=== PATIENT | male | born 2000 | race Caucasian/White ===

== ENCOUNTER 2022-09-05 17:26 | Emergency (ER) | payer OTHER ==
[~2022-09-05] VITALS: Ht 182.9 cm; Wt 77.3 kg
[2022-09-05] MEDS ORDERED: KETOROLAC TROMETHAMINE 30 MG/ML VIAL IM ONE (17:45)
[2022-09-05 18:44] LABS: COVID AG,FIA SOURCE NASOPHARYNGEAL
[2022-09-05] MEDS ORDERED: CeFAZolin 1 GM/DEXTROSE 50 ML IV ONE (18:45)
[2022-09-05] MEDS ORDERED: KETOROLAC TROMETHAMINE 30 MG/ML VIAL IVP ONE (19:00)
[2022-09-05] MEDS: PERTUSS(ACELL),DIPH,TET VAC/PF 0.5 ML SYRINGE IM. ONE ×2 (19:00→19:04)
[2022-09-05 19:44] VITALS: BP 119/71
== END 2022-09-05 20:03 | disposition short-term general hospital (02) ==
LOC: EMS 17:29
DX: S02.609B Fracture of mandible, unspecified, initial encounter for open fracture (principal); S09.90XA Unspecified injury of head, initial encounter; Z20.822 Contact with and (suspected) exposure to COVID-19; W05.1XXA Fall from non-moving nonmotorized scooter, initial encounter; Y93.89 Activity, other specified; Y92.89 Other specified places as the place of occurrence of the external cause; Y99.8 Other external cause status
CPT/HCPCS: 99285; 70450; 96365; 87426; 70486; 72125; 96372; J0690; J1885; 90715